=== PATIENT | female | born 1995 | race Caucasian/White ===

== ENCOUNTER 2021-08-12 10:47 | Emergency (ER) | payer OTHER | END 2021-08-12 12:53 | disposition home or self-care (01) | LOC: MW.ED 10:47 | DX: S01.01XA Laceration without foreign body of scalp, initial encounter (principal); V49.10XA Passenger injured in collision with unspecified motor vehicles in nontraffic accident, initial encounter; Y92.410 Unspecified street and highway as the place of occurrence of the external cause | CPT/HCPCS: 12002; 99283-25 ==